=== PATIENT | male | born 1995 | race African-American/Black ===

== ENCOUNTER 2025-08-21 14:00 | Outpatient (REF) | payer OTHER, SELFPAY ==
--- NOTE | 2025-08-21 14:10 | ECG_ITS ---
Test Reason : CHECK QT Blood Pressure : */* mmHG Vent. Rate : 78 BPM Atrial Rate : 78 BPM P-R Int : 152 ms QRS Dur : 80 ms QT Int : 320 ms P-R-T Axes : 74 63 51 degrees QTcB Int : 364 ms Normal sinus rhythm with sinus arrhythmia Normal ECG No previous ECGs available Referred By: Brittany Anderson Electronically Signed By: MARTIN OZUNA MD
[2025-08-21 14:37] LABS: MANUAL DIFF FLAG NO
[2025-08-21 15:32] LABS: Hematocrit 45.4 % (42.0-52.0); Hemoglobin 15.1 g/dl (14.0-18.0); Imm Gran Abs Auto 0.03 X10*3/uL (0.00-0.03); Imm Gran Pct Auto 0.5 % (0.0-0.4); Lymphocytes Absolute Auto 2.2 X10*3/uL (1.2-4.9); Mean Corpuscular HGB Conc 33.3 g/dl (31.0-36.0); Mean Corpuscular Hemoglobin 30.1 pg (27.0-33.0); Mean Corpuscular Volume 90.4 fL (80.0-98.0); NRBC Abs Auto 0.000 X10*3/uL (0.0-0.012); NRBC Pct Auto 0.0 /100WBC (0.0-0.2); Platelet Count 264 X10*3/uL (160-400); Red Blood Count 5.02 X10*6/uL (4.60-5.80); White Blood Count 6.1 X10*3/uL (4.8-10.8)
[2025-08-21 15:46] LABS: Appearance Urine Cloudy; Glucose Urine UA Negative (Negative); PH 7.5 (5.0-9.0); Specific Gravity - Urine 1.025 (1.005-1.025)
[2025-08-21 16:54] LABS: Erythrocyte Sedimentation Rate 8 MM/HR (0-15)
[2025-08-21 17:30] LABS: Alanine Aminotransferase 85 U/L (0-40); Albumin Level 4.6 g/dL (3.5-5.0); Alkaline Phosphatase 77 U/L (39-117); Anion Gap 10 (12-20); Aspartate Amino Transferase 34 U/L (5-37); Blood Urea Nitrogen 27 mg/dL (9-16); Calcium 9.1 mg/dL (8.4-10.2); Carbon Dioxide 31 mmol/L (22-29); Chloride 105 mmol/L (96-108); Cholesterol 180 mg/dL (<200); Estimated Glomerular Filt Rate > 60; Iron 64 mcg/dL (45-160); Percent Iron Saturation 27 % (15-50); Potassium 4.2 mmol/L (3.3-5.1); Sodium 142 mmol/L (135-145); Total Iron Binding Capacity 239 mcg/dL (228-428); Total Protein 7.6 g/dL (6.5-8.0); Unsaturated Iron Binding 175 ug/dL
[2025-08-21 17:39] LABS: Free T4 (Free Thyroxine) 0.96 ng/dL (0.71-1.85); Thyroid Stimulating Hormone 0.93 uIU/mL (0.32-4.0)
[2025-08-21 17:56] LABS: Folate 12.8 ng/mL (> or = 4.0); Vitamin B12 646 pg/mL (200-900)
--- OUTSIDE RECORDS SUMMARY | 2025-08-21 22:56 | XMS_ITS | Clinical Summary ---
Author Organization [facility] Address [address] [address] Phone Care Team Providers Care Commercial Green Building Architect Name Role Phone Unknown, Unknown Primary Care Provider Terri lable Allergies No known active allergies Medications No known medications Encounters Date Type Department Care Team Description 08/09/2025 Telephone Meet You [facility] [address], [place] [phone] Unknown, Unknown, MD from Last 3 Months Social History Tobacco Use Types Packs/Day Years Used Date Smoking Tobacco: Never Passive Smoke Exposure: Never Smokeless Tobacco: Never Tobacco Cessation:Counseling Given: Not Answered Education Answer Date Recorded Are you interested in more education? Not on ramesh e 10/06/2023 Are you concerned about learning? Not on file 10/06/2023 No 10/06/2023 No 10/06/2023 Digital Access Answer Date Recorded No 10/06/2023 No 10/06/2023 Reliable internet access at home? Not on file 10/06/2023 Device with a working camera? Not on file Sex and Gender Information Value Date Recorded Sex Assigned at Not on file Legal Sex Male 11:42 AM EDT Gender Identity Not on file Sexual Orientation Not on file Last Filed Vital Signs Vital Sign Reading Time Taken Comments Blood Pressure 114/82 10/06/2023 10:39 AM EST Pulse 91 10/06/2023 10:39 AM EST Temperature 36.6 C (97.9 F) 10/06/2023 10:39 AM EST Respiratory Rate 18 10/06/2023 10:39 AM EST Oxygen Saturation 97% 10/06/2023 10:39 AM EST Inhaled Oxygen Concentration - - Weight - - Height - - Body Mass Index - - Plan of Treatment Upcoming Encounters Date Type Department Care Team ([facility] st Contact Info) Description 04/16/2026 10:00 AM EDT Office Visit [facility] [address] [place] [address] Eric Carpenter DO [address] [facility], [address] [place] [address] [email or web address] Health Maintenance Due Date Last Done Comments Adult Td,Tdap Booster 1994 DEPRESSION SCREENING 2006 HEPATITIS C SCREENING 2012 HIV ONE-TIME SCREENING (18-6 5 YEARS) 2012 INFLUENZA VACCINE (#1) 2025 COVID-19 VACCINE (3 2024-2 6 season) 2025 11/27/2020, 10/29/2020 SMOKING STATUS SCREENING (On ce After 26 Yrs) Completed 10/06/2023 HEPATITIS A VACCINES Aged Out No long er eligible based on patient's age to complete this topic HIB VACCINES Aged Out No longer eligi ble based on patient's age to complete this topic MENINGOCOCCAL VACCINES (ACWY) Aged Out No longer eligible based on patient's age to complete this topic MENINGOCOCCAL VACCINES (B) Aged Out N o longer eligible based on patient's age to complete this topic PNEUMOCOCCAL VACCINES (0-49 years) Aged Out No longer eligible b ased on patient's age to complete this topic Medical Devices Not on file Insurance [address] [place] [id number] [facility] HMO [address] [place] [address] HMO [facility] [id number] HMO [employer]PO [employer] [id number] [id number] [facility]MO [employer] [place] [id number] [place] [address] [id number] [address] [place] [address] [phone] [address] [place] [phone] Care Teams Commercial Green Building Architect Relationship Specialty Start Date End Date Unknown, Unknown, PCP - General 10/06/23 Additional Source Comments The information contained in this document represents components of the legal health record. It is not the complete legal health record.[facility]
--- OUTSIDE RECORDS SUMMARY | 2025-08-21 22:56 | XMS_ITS | Encounter Summary ---
Author Organization [facility] Address [address] [facility] [address] [place] [address] Phone Care Team Providers Care Astrophysics Professor Name Role Phone Unknown, Unknown Primary Care Provider Terri flores Encounter Details Date Type Department Care Team (Late Contact Info) Description 08/09/2025 Telephone [facility] [address] [place], [place] [phone] Unknown, Unknown, MD Social History Tobacco Use Types Packs/Day Years Used Date Smoking Tobacco: Never Passive Smoke Exposure: Never Smokeless Tobacco: Never Education Answer Date Recorded Are you interested [...] on file Sexual Orientation Not on file documented as of this encounter Plan of Treatment Upcoming Encounters Date Type Department Care Team (Late st Contact Info) Description 04/16/2026 10:00 AM EDT Office Visit [facility] [address] [place] [address] Eric Carpenter, DO [address] [facility], [address] [place] [address] [email or web address] documented as of this encounter Visit Diagnoses Not on filedocumented in this encounter Care Teams Astrophysics Professor Relationship Specialty Start Date End Date Unknown, Unknown, PCP - General 10/06/23 documented as of this encounter Additional Source Comments The information contained in this document represents components of the legal health record. It is not the complete legal health record.[facility]
[2025-08-21 23:48] LABS: CT PCR Urine NOT DETECTED (Not Detect.); NG PCR Urine NOT DETECTED (Not Detect.)
[2025-08-22 12:27] LABS: Syphilis Screen Nonreactive (Nonreactive)
== END 2025-08-21 14:01 | disposition home or self-care (01) ==
LOC: HO.LAB 14:00
PROVIDERS: Visit Provider Psychiatry & Neurology Psychiatry
DX: Z12.5 Encounter for screening for malignant neoplasm of prostate (principal); Z20.2 Contact with and (suspected) exposure to infections with a predominantly sexual mode of transmission; Z13.6 Encounter for screening for cardiovascular disorders; Z13.1 Encounter for screening for diabetes mellitus; F32.1 Major depressive disorder, single episode, moderate; F41.1 Generalized anxiety disorder; F52.4 Premature ejaculation
CPT/HCPCS: 80053; 81003; 82465; 82607; 82746; 83036; 83540; 84153; 84439; 84443; 85025; 85652; 86140; 86592; 86780; 87491; 87591; 93005

== ENCOUNTER → 2025-08-21 14:10 | Outpatient (BNV) | payer OTHER, SELFPAY | PROVIDERS: Visit Provider Internal Medicine Cardiovascular Disease | DX: Z13.6 Encounter for screening for cardiovascular disorders (principal) | CPT/HCPCS: 93010 ==

== ENCOUNTER 2025-08-24 13:00 | Outpatient (RCR) | payer OTHER, SELFPAY ==
[2025-08-09 09:26] VITALS: BP 114/76; PULSE 76; TEMP 37.1; BMI 27.7
--- NOTE | 2025-08-09 14:24 | PC.ADMIT ---
Patient is a 30 year old single male who was referred to [facility] by crisis who patient was evaluated by secondary to increased depression and anxiety with intermittent SI without a plan or intent. Patient reports that since he was 24 year old he has had thoughts to hurt himself specifically when he encounters any type of transitional period. Patient also reports history of trauma. Currently patient is experiencing work stress d/t recent work promotion. Patient is currently taking a leave of absence from work to work on his mental health. Leave started on the 07/24/25. Patient fears he is not capable of doing the job. He reports he was told by his co-workers, who he stated are supportive, that it takes a good year to learn the job and another year to feel comfortable in the position. Patient stated he always had a difficult time in school and is questioning whether or not he is on the spectrum. He also reports he was recently put on ADHD medications. Patient is alert and oriented x4. He is calm and cooperative. He presented with depressed mood and anxious affect. Patient denied HI. When asked about SI patient stated, All over the map to be honest. Right now I feel ok I'd give myself a 6 out of 10. There are days where I feel I could never do anything to myself and other days thinking about my past and [place] trauma . Patient stated he has felt this way since the age of 24. Patient denied any active plans or intent to kill/harm self. Patient stated he is able to reach out to crisis if needed. He stated he called crisis recently and was referred to [facility]. Patient reports history of suicidal thoughts. Patient stated, 8 months ago was the first time I really ever thought of a plan and drive around all the places where I used to live and I was thinking about applying for a gun license at the time . Patient stated he does not have access to a gun and never applied for a license. Patient was given a copy of his safety plan if needed. Medications updated with patient and patient's pharmacy. He reports taking medications as prescribed.
--- NOTE | 2025-08-09 14:28 | PC.NURSE ---
Patient stated he does not have a PCP. Patient called in my office [facility] to make an appointment with a new PCP. New PCP appointment at [facility] Office at [address] [place] [address]. On 04/16/26 at 10:00 am. Office #[phone]?.
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
--- NOTE | 2025-08-17 15:24 | HO.PHP ---
Isidro's case was opened during weekly team treatment meeting.
--- NOTE | 2025-08-18 15:55 | P.PNPSP_ITS ---
Subjective Subjective Date of Service: 08/18/25 Reason For Visit: anxiety,ADHD Interim History: Patient seen for follow-up. Complaining of rash over abdomen, says it is not new but says it has been more noticable and has been more itchy patches. 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 Mood is still fluctuates, a lot of anxiety, it kind of day by day . Mood has been improving in the morning but kind of declines later in the day heading to night. Experiences fight or flight sometimes at work. Started the guanfacine last night and did not feel too tired from this so he plans to move it to the daytime with the Vyvanse. Denies any substance use. Sleep, appetite, energy stable. Medication Compliance: Yes Side effects from medications: No Attending Groups: Yes Review of Systems Acute medical concerns: No as noted above Mental Status Exam Mental Status Exam Narrative: Alert, oriented, in no acute distress. Calm, cooperative, engaged. No psychomotor agitation or neurovegetative retardation. Eye contact maintained. Mood anxious, affect less contriscted. Speech normal. Thought process linear, coherent. Thought content related to stressors, transient hopelessness, denies SI or HI. No paranoia or delusional content elicited. No evidence of psychosis. Insight and judgment - fair but adequate. Diagnostics Vital Signs (24Hr): BMI result Body Mass Index 27.7 Assessment & Plan Assessment & Plan (1) ADHD: Status: Acute Code(s): F90.9 - Attention-deficit hyperactivity disorder, unspecified type (2) RANJAN (generalized anxiety disorder): Status: Acute Code(s): F41.1 - Generalized anxiety disorder (3) Depressive disorder: Status: Acute Code(s): F32.A - Depression, unspecified (4) Tinea corporis: Status: Acute Code(s): B35.4 - Tinea corporis Plan continue PHP start clotrimazole topical for t.corporis increase Vyvanse to 30 mg qd continue guanface ER 1 mg qam increase lurasidone to 40 mg qd w meals continue regular medications for now Routine lab work, slip given today EKG, routine for baseline QTc for medication considerations as indicated UDS as indicated VS reviewed on admission: afebrile, BP 114/76;?76 bpm Continue to monitor Patient educated on: diagnosis and medication risk/benefits Informed Consent: understands Reason for contiued partial hosp. stay Substantial Risk for: med/psych decompensation Certification I certify that partial hospital treatment is medically necessary due to the symptoms and problems resulting from the patient's mental illness and the failure to treat the patient at the partial hospital level of care would likely result in the patient requiring inpatient psychiatric care which could not be prevented at a less intensive level of care. Total time managing care of this patient today __30__ minutes. Discharge Plan Discharge Attending provider: Brittany Anderson Additional Instructions: New PCP appointment at [facility] Office at [address] [place] [address]. On 04/16/26 at 10:00 am. Office #[phone]?. Medications: New clotrimazole 1 % cream 1 appl topical TID 14 Days Qty: 30 0RF Rx Instructions: apply to affected area as directed lurasidone 40 mg tablet 40 mg PO QPM Qty: 30 0RF Rx Instructions: must administer with food (at least 350 calories) lisdexamfetamine 40 mg capsule 40 mg PO QAM Qty: 14 0RF Rx Instructions: Partial Fill upon patient request. Continued multivitamin Tablet 1 tab PO DAILY omega-3 fatty acids-vitamin E 1,000 mg Capsule 1 cap PO DAILY guanfacine 1 mg tablet extended release 24 hr 1 mg PO QAM Qty: 30 0RF Discontinued lisdexamfetamine 20 mg capsule 20 mg PO DAILY Stand Alone Forms: Patient Portal Discharge page Patient Education: Tinea Corporis (ED), ADHD in Adults (DC), Depression (DC), Anxiety (ED) Print Language: Maltese
--- NOTE | 2025-08-24 22:59 | P.PNPSP_ITS ---
Subjective Subjective Date of Service: 08/24/25 Reason For Visit: anxiety,ADHD Interim History: Patient seen for follow-up, anticipating discharge at the end of program today.? Initially some sedation when increasing dose to of Latuda from 20 to 40 mg. Now resolved. Feels his head is in a calmer state feel like my emotions are more rational now . Intuniv 1 mg and Vyvanse at 30 mg (focus has improved from a 1 or 2/10 to a 4 or 5/10, anxiety is reduced down to a 3/10. Denies any adverse effects from the Vyvanse. He will take an additional 10 mg (=40 mg) and if this continues to be well-tolerated will prescribe as 40 mg. Reports no acute issues or concerns. Medication compliant, medications well- tolerated. Denies any adverse effects.? Mood is stable.? Denies any hopelessness or SI. Denies thoughts of harming self or others at this time. Denies any aggressive ideation or HI. Denies any paranoia or AH or VH. Sleep, appetite, energy stable. Medication Compliance: Yes Side effects from medications: No Attending Groups: Yes Review of Systems Acute medical concerns: No Mental Status Exam Mental Status Exam Narrative: Alert, oriented, in no acute distress. Calm, cooperative. Mood stable, affect appropriate. Speech normal. Thought process linear, coherent, more goal- directed. Thought content related to stressors, future-oriented, denies any helplessness, hopelessness or SI.? No aggressive ideation or HI. No paranoia or delusional content elicited. No evidence of psychosis. Insight and judgment fair-good. Diagnostics Vital Signs (24Hr): BMI result Body Mass Index 27.7 Assessment & Plan Assessment & Plan (1) ADHD: Status: Acute Code(s): F90.9 - Attention-deficit hyperactivity disorder, unspecified type (2) RANJAN (generalized anxiety disorder): Status: Acute Code(s): F41.1 - Generalized anxiety disorder (3) Depressive disorder: Status: Acute Code(s): F32.A - Depression, unspecified (4) Tinea corporis: Status: Acute Code(s): B35.4 - Tinea corporis Plan Discharge from [facility] Continue regular medications? Refills sent to pharmacy Will defer further medication management to outpatient provider *Safety plan reviewed *Discharge diagnoses, treatment course, discharge plan have been reviewed with patient (including medication regime, medication management, potential side effects) as well as treatment rationale were also revisited *Discharge paperwork signed and given to patient, copy sent for scanning to chart Patient educated on: diagnosis and medication risk/benefits Informed Consent: understands Reason for contiued partial hosp. stay Substantial Risk for: stable for discharge Certification I certify that partial hospital treatment is medically necessary due to the symptoms and problems resulting from the patient's mental illness and the failure to treat the patient at the partial hospital level of care would likely result in the patient requiring inpatient psychiatric care which could not be prevented at a less intensive level of care. Total time managing care of this patient today _30___ minutes. Discharge Plan Discharge Attending provider: Brittany Anderson Additional Instructions: New PCP appointment at [facility] Office at [address] [place] [address]. On 04/16/26 at 10:00 am. Office #[phone]?. Medications: New clotrimazole 1 % cream 1 appl topical TID 14 Days Qty: 30 0RF Rx Instructions: apply to affected area as directed lurasidone 40 mg tablet 40 mg PO QPM Qty: 30 0RF Rx Instructions: must administer with food (at least 350 calories) lisdexamfetamine 40 mg capsule 40 mg PO QAM Qty: 14 0RF Rx Instructions: Partial Fill upon patient request. Continued multivitamin Tablet 1 tab PO DAILY omega-3 fatty acids-vitamin E 1,000 mg Capsule 1 cap PO DAILY guanfacine 1 mg tablet extended release 24 hr 1 mg PO QAM Qty: 30 0RF Discontinued lisdexamfetamine 20 mg capsule 20 mg PO DAILY Stand Alone Forms: Patient Portal Discharge page Patient Education: Tinea Corporis (ED), ADHD in Adults (DC), Depression (DC), Anxiety (ED) Print Language: Venezuelan
== END 2025-08-24 23:59 | disposition home or self-care (01) ==
LOC: HO.PHPA 13:00
PROVIDERS: Visit Provider Psychiatry & Neurology Psychiatry
DX: F90.9 Attention-deficit hyperactivity disorder, unspecified type (principal); F41.1 Generalized anxiety disorder; F32.A Depression, unspecified; B35.4 Tinea corporis; Z79.899 Other long term (current) drug therapy
CPT/HCPCS: 90853